=== PATIENT | female | born 1945 | race Caucasian/White ===

== ENCOUNTER → 2019-07-10 | Outpatient (CLI) | payer MEDICARE | LOC: LABNPT 09:27 | PROVIDERS: ATTEND Orthopaedic Surgery | DX: Z03.818 Encounter for observation for suspected exposure to other biological agents ruled out (principal) | CPT/HCPCS: 87635 ==

== ENCOUNTER 2020-08-21 09:08 | Outpatient (CLI) | payer MEDICARE ==
[~2020-08-21] VITALS: Ht 162.6 cm; Wt 118.2 kg
[2020-08-21] MEDS ORDERED: EPINEPHrine INJECTION 1 MG/ML AMP IM PRN (09:30)
[2020-08-21] MEDS ORDERED: diphenhydrAMINE 50 MG/ML INJ (BENADRYL) IV PRN (09:30)
[2020-08-21] MEDS ORDERED: CASIRIVIMAB/IMDEVIMAB 1,200 MG in NS (IVPB) 250 ML IV ONE (09:30)
[2020-08-21 09:40] VITALS: BP 133/52
[2020-08-21 10:33] VITALS: BP 148/55
== END 2020-08-21 11:00 | disposition home or self-care (01) ==
LOC: INFUSION 09:08
PROVIDERS: ATTEND Student in an Organized Health Care Education/Training Program
DX: Z23 Encounter for immunization (principal); U07.1 COVID-19